=== PATIENT | female | born 1995 | race Caucasian/White ===

== ENCOUNTER 2017-12-30 15:42 | Emergency (ER) | payer BC ==
[~2017-12-30] VITALS: Ht 162.6 cm; Wt 123.7 kg
[~2017-12-30 15:42] MED LIST: COMPLETENATE T1 EACH PO; ENDOCET 5-3251 EACH PO; IBUPROFEN800 MG PO; PRENATAL TABLE1 EAC3 PO; PROTONIX40 MG PO
[2017-12-30 16:48] LABS: HEMATOCRIT 39.7 % (36.0-46.0); HEMOGLOBIN 13.7 G/DL (11.9-15.5); MCH 29.8 PG (29.0-34.0); MCHC 34.5 G/DL (30.0-36.0); MCV 86.5 FL (83-99); PLATELET COUNT 355 K/uL (156-360); RBC DIS.WIDTH-CV 13.1 % (11.8-14.6); RBC DIS.WIDTH-SD 40.4 % (39-53); RED BLOOD COUNT 4.59 M/uL (3.80-5.20)
[2017-12-30 17:01] LABS: APPEARANCE CLEAR ((CLEAR)); BILIRUBIN NEGATIVE; BLOOD NEGATIVE; COLOR YELLOW ((YELLOW)); GLUCOSE (STRIP) NEGATIVE; KETONES NEGATIVE; LEUKOCYTES NEGATIVE; NITRITE NEGATIVE; PROTEIN (STRIP) NEGATIVE; SPECIFIC GRAVITY 1.017 (1.000-1.030); UCUL ADDED? NO; UROBILINOGEN 0.2 MG/DL (0.2-1.0)
[2017-12-30 17:03] LABS: ALBUMIN 4.3 g/dL (3.2-4.8); CHLORIDE 106 mEq/L (99-109); POTASSIUM 3.7 mEq/L (3.7-5.4); SODIUM 140 mEq/L (136-147)
[2017-12-30 17:05] LABS: GLUCOSE 109 mg/dL (70-99)
[2017-12-30 17:06] LABS: TOTAL PROTEIN 7.6 g/dL (6.4-8.3)
[2017-12-30 17:07] LABS: TOTAL BILIRUBIN 0.3 mg/dL (0.0-1.0)
[2017-12-30 17:09] LABS: ALKALINE PHOSPHATASE 77 IU/L (3-129); CREATININE 0.8 mg/dL (0.6-1.3); GFR ESTIMATE (CALCULATED) > 59 mL/min/
[2017-12-30 17:10] LABS: UREA NITROGEN (BUN) 10 mg/dL (9-23)
[2017-12-30 17:11] LABS: AST (GOT) 23 IU/L (2-34)
[2017-12-30 17:12] LABS: ALT (GPT) 34 IU/L (3-49)
[2017-12-30 17:18] LABS: QUANTITATIVE HCG 4938.1 MIU/ML
[2017-12-30] MEDS ORDERED: FLEXERIL10 MG PO (19:32)
[2017-12-30 20:26] VITALS: BP 147/92
== END 2017-12-30 20:27 | disposition home or self-care (01) ==
LOC: EME 15:42
DX: O99.89 Other specified diseases and conditions complicating pregnancy, childbirth and the puerperium (principal); M54.5 Low back pain; O16.1 Unspecified maternal hypertension, first trimester; Z3A.01 Less than 8 weeks gestation of pregnancy; O99.341 Other mental disorders complicating pregnancy, first trimester; F41.9 Anxiety disorder, unspecified
CPT/HCPCS: 76801; 80053; 81003; 84702; 85027; 99281; 99284